=== PATIENT | male | born 1985 | race Caucasian/White ===

== ENCOUNTER 2017-06-05 15:45 | Emergency (ER) | payer SELFPAY ==
[2017-06-05] MEDS ORDERED: ONDANSETRON 4 MG TAB.RAPDIS PO ONE (16:43)
--- NOTE | 2017-06-05 16:45 | ER Document Report ---
ED Medical Screen (RME) - General Chief Complaint: Pain All Over Stated Complaint: HEAT EXAUSTION Time Seen by Provider: 06/05/17 16:43 Mode of Arrival: Medic Information source: Patient Notes: This is a 32-year-old man brought into the emergency room for heat exhaustion. Patient has a history of chronic back pain and is currently treated with Percocet. He stopped having pain medicines 3 times daily. Patient's father also states that the patient drinks a fair amount of beer. Patient's states that he has been working and he oftentimes gets dehydrated. The patient is complaining of nausea, diffuse spasms. TRAVEL OUTSIDE OF THE [place] IN LAST 30 DAYS: No - Related Data Allergies/Adverse Reactions: No Known Allergies Allergy (Unverified 06/05/17 15:54) Past Medical History - Social History Frequency of alcohol use: None Drug Abuse: None Renal/ Medical History: Denies: Hx Peritoneal Dialysis Physical Exam - Vital signs Vitals: Temp Pulse Resp BP Pulse Ox 98.0 F 97 24 H 120/86 H 97 06/05/17 15:53 06/05/17 15:53 06/05/17 15:53 06/05/17 15:53 06/05/17 15:53 Course - Vital Signs Vital signs: Temp Pulse Resp BP Pulse Ox 98.0 F 97 24 H 120/86 H 97 06/05/17 15:53 06/05/17 15:53 06/05/17 15:53 06/05/17 15:53 06/05/17 15:53 - Laboratory Result Diagrams: 06/05/17 16:47 06/05/17 16:47 Laboratory results interpreted by me: 06/05/17 06/05/17 16:47 16:47 WBC 17.8 H Plt Count 466 H Seg Neutrophils % 82.8 H Lymphocytes % 10.0 L Absolute Neutrophils 14.8 H Chloride 95 L Anion Gap 23 H BUN 42 H Creatinine 3.69 H Est GFR ( Amer) 23 L Est GFR (Non-Af Amer) 19 L Glucose 120 H Calcium 11.1 H Total Protein 10.1 H Albumin 5.9 H Doctor's Discharge - Discharge Clinical Impression: Acute renal failure Heat exhaustion Qualifiers: Encounter type: initial encounter Qualified Code(s): T67.5XXA - Heat exhaustion , unspecified, initial encounter Condition: Stable Disposition: ADMITTED INPATIENT
[2017-06-05] MEDS: NORMAL SALINE 1000 ML 1,000 ML IV PRN ×2 (16:55→16:56)
[2017-06-05 17:08] LABS: ABSOLUTE BASOPHILS # (AUTO) 0.1 10^3/uL (0.0-0.2); ABSOLUTE LYMPHOCYTES (AUTO) 1.8 10^3/uL (0.5-4.7); ABSOLUTE MONOCYTES (AUTO) 1.2 10^3/uL (0.1-1.4); ABSOLUTE NEUT (AUTO) 14.8 10^3/uL (1.7-8.2); BASOPHILS % (AUTO) 0.4 % (0-2); EOSINOPHILS % (AUTO) 0.2 % (0-6); HEMATOCRIT 46.4 % (37.9-51.0); HEMOGLOBIN 15.8 g/dL (13.5-17.0); MEAN CORPUSCULAR HEMOGLOBIN 28.6 pg (27.0-33.4); MEAN CORPUSCULAR HGB CONC 34.1 g/dL (32.0-36.0); MEAN CORPUSCULAR VOLUME 84 fl (80-97); MONOCYTES % (AUTO) 6.6 % (3-13); RED BLOOD COUNT 5.52 10^6/uL (4.35-5.55); RED CELL DISTRIBUTION WIDTH 12.8 % (11.5-14.0); SEGMENTED NEUTROPHILS % (AUTO) 82.8 % (42-78); WHITE BLOOD COUNT 17.8 10^3/uL (4.0-10.5)
[2017-06-05] MEDS ORDERED: CLONIDINE HCL 0.1 MG TABLET PO ONE (17:13)
[2017-06-05 17:18] LABS: ALANINE AMINOTRANSFERASE 33 U/L (21-72); ALBUMIN 5.9 g/dL (3.5-5.0); ALKALINE PHOSPHATASE 96 U/L (38-126); ASPARTATE AMINO TRANSFERASE 21 U/L (17-59); BILIRUBIN,DIRECT 0.4 mg/dL (0.0-0.4); BLOOD UREA NITROGEN 42 mg/dL (7-20); CALCIUM 11.1 mg/dL (8.4-10.2); CARBON DIOXIDE 22 mmol/L (22-30); CREATININE RESULT 3.69 mg/dL (0.52-1.25); GLUCOSE 120 mg/dL (75-110); MAGNESIUM 2.1 mg/dL (1.6-2.3); POTASSIUM 4.3 mmol/L (3.6-5.0); SODIUM 140.2 mmol/L (137-145); TOTAL PROTEIN 10.1 g/dL (6.3-8.2)
[2017-06-05 17:30] LABS: CHLORIDE 95 mmol/L (98-107)
[2017-06-05 17:43] LABS: ANION GAP 23 (5-19)
[2017-06-05] MEDS ORDERED: NORMAL SALINE 1000 ML 1,000 ML IV PRN (18:10)
--- NOTE | 2017-06-05 18:10 | ER Document Report ---
ED General - General Chief Complaint: Pain All Over Stated Complaint: HEAT EXAUSTION Time Seen by Provider: 06/05/17 16:43 Mode of Arrival: Medic Information source: Patient Notes: 32-year-old man with a history of chronic back pain presents to the emergency room with diffuse muscle aches, decreased urine output over the last 48 hours. Patient states she has been out exposed to the heat a lot for the past 2 days. TRAVEL OUTSIDE OF THE [place] IN LAST 30 DAYS: No - HPI Onset: Yesterday Onset/Duration: Gradual Quality of pain: Dull Severity: Moderate Pain Level: 2 Associated symptoms: denies: Chills, Fever, Shortness of breath Exacerbated by: Movement Relieved by: Denies Similar symptoms previously: Yes Recently seen / treated by doctor: No - Related Data Allergies/Adverse Reactions: No Known Allergies Allergy (Unverified 06/05/17 15:54) Past Medical History - General Information source: Patient - Social History Smoking Status: Current Every Day Smoker Cigarette use (# per day): Yes - 1/2 Pack per day Chew tobacco use (# tins/day): No Frequency of alcohol use: Heavy Drug Abuse: Prescription drugs Lives with: Family Family History: Reviewed & Not Pertinent Patient has suicidal ideation: No Patient has homicidal ideation: No - Medical History Medical History: Negative Renal/ Medical History: Denies: Hx Peritoneal Dialysis Surgical Hx: Other - NON Contributory Review of Systems - Review of Systems Constitutional: denies: Chills, Fever EENT: No symptoms reported Cardiovascular: No symptoms reported Respiratory: No symptoms reported Gastrointestinal: No symptoms reported Genitourinary: Other - Decreased urine output Male Genitourinary: No symptoms reported Musculoskeletal: See HPI Skin: No symptoms reported Hematologic/Lymphatic: No symptoms reported Neurological/Psychological: Weakness Physical Exam - Vital signs Vitals: Temp Pulse Resp BP Pulse Ox 98.0 F 97 24 H 120/86 H 97 06/05/17 15:53 06/05/17 15:53 06/05/17 15:53 06/05/17 15:53 06/05/17 15:53 Notes: Physical exam: GENERAL: 32-year-old man, alert and oriented 3, appears in distress HEAD: Atraumatic, normocephalic. EYES: Pupils equal round and reactive to light, extraocular movements intact, sclera anicteric, conjunctiva are normal. ENT: TMs normal, nares patent, oropharynx clear without exudates. Moist mucous membranes. NECK: Normal range of motion, supple without lymphadenopathy or JVD. LUNGS: Breath sounds clear to auscultation bilaterally and equal. No wheezes rales or rhonchi. HEART: Regular rate and rhythm without murmurs, rubs or gallops. ABDOMEN: Soft, normoactive bowel sounds. No tenderness to palpation. No guarding, no rebound. No masses appreciated. EXTREMITIES: Normal range of motion, no pitting or edema. No clubbing or cyanosis. NEUROLOGICAL: Cranial nerves II through XII grossly intact. Normal speech, normal gait. PSYCH: Normal mood, normal affect. SKIN: Warm, Dry, normal turgor, no rashes or lesions noted. Course - Re-evaluation Re-evalutation: 06/05/17 18:09 Note: The patient did feel significantly better after IV fluids. The leukocytosis is felt to be from demargination given the stress from heat illness. The patient has not had any cough or abdominal pain or any burning on urination. He has not had any fever or symptoms suggestive of infection. However, his labs are concerning because he has acute renal failure. For this reason, I will continue the IV fluids and admit him to the hospital. 06/05/17 21:03 Patient was accepted by the hospitalist service and I discussed the case with Dr. Mejia who is willing to admit the patient. However, the patient refused admission. I spoke in depth to the patient with his and parents at the bedside. I discussed the importance of having him come into the hospital but he is adamantly against it at this point. He does look significantly better than when he first came in and states he feels great. The plan will be for him to follow-up with a primary care doctor. I have stressed the importance that he follow-up and have repeat kidney function tests in the next week. I have also told him that he should come back here if he is unable to get into the clinic. I [facility] as well as the kidney specialist. - Vital Signs Vital signs: Temp Pulse Resp BP Pulse Ox 97.8 F 81 18 119/73 100 06/05/17 19:22 06/05/17 19:22 07/07/17 19:22 06/05/17 19:22 06/05/17 19:22 - Laboratory Result Diagrams: 06/05/17 16:47 06/05/17 16:47 Laboratory results interpreted by me: 06/05/17 06/05/17 06/05/17 16:47 16:47 18:10 WBC 17.8 H Plt Count 466 H Seg Neutrophils % 82.8 H Lymphocytes % 10.0 L Absolute Neutrophils 14.8 H Chloride 95 L Anion Gap 23 H BUN 42 H Creatinine 3.69 H Est GFR ( Amer) 23 L Est GFR (Non-Af Amer) 19 L Glucose 120 H Calcium 11.1 H Total Protein 10.1 H Albumin 5.9 H Urine Protein 100 H Urine Blood SMALL H - Diagnostic Test Radiology reviewed: Image reviewed, Reports reviewed - CT of the abdomen shows no obstructive uropathy. Chest x-ray was clear Discharge - Discharge Clinical Impression: Acute renal failure Heat exhaustion Qualifiers: Encounter type: initial encounter Qualified Code(s): T67.5XXA - Heat exhaustion , unspecified, initial encounter Condition: Stable Disposition: HOME, SELF-CARE Instructions: Heat Exhaustion ([facility]) Additional Instructions: As we discussed: You have acute kidney injury most likely from heat exhaustion. I would like you to rest over the next few days and drink plenty of fluids. Try to avoid the heat. Take any ibuprofen, Aleve or Motrin Thank you to follow-up with the primary care doctor: I left the number for the [facility]. This is the free clinic. Finally, I left the number for the kidney doctor. Like you to get your kidney function tests repeated in the next week. To the emergency room for any concerns that you are feeling worse Referrals: DAGO SHELL MD [ACTIVE STAFF] - Follow up as needed (The number of the kidney doctor: I would like you to call for an appointment.) [facility] [Provider Group] - Follow up as needed (call for next available appointment)
--- NOTE | 2017-06-05 18:36 | RADIOLOGY REPORT (SQ) ---
EXAM DESCRIPTION: CHEST PA/LAT COMPLETED DATE/TIME: 06/05/2017 6:28 pm REASON FOR STUDY: leukocytosis COMPARISON: None. EXAM PARAMETERS: NUMBER OF VIEWS: two views TECHNIQUE: Digital Frontal and Lateral radiographic views of the chest acquired. RADIATION DOSE: NA LIMITATIONS: none FINDINGS: LUNGS AND PLEURA: No opacities, masses or pneumothorax. No pleural effusion. MEDIASTINUM AND HILAR STRUCTURES: No masses or contour abnormalities. HEART AND VASCULAR STRUCTURES: Heart normal size. No evidence for failure. BONES: No acute findings. HARDWARE: None in the chest. OTHER: No other significant finding. IMPRESSION: NO SIGNIFICANT RADIOGRAPHIC FINDING IN THE CHEST. TECHNICAL DOCUMENTATION: JOB ID: [id number] [employer]- All Rights Reserved
--- NOTE | 2017-06-05 18:36 | RADIOLOGY REPORT (SQ) ---
EXAM DESCRIPTION: CT LTD RENAL STONE PROTOCOL ON COMPLETED DATE/TIME: 06/05/2017 6:25 pm REASON FOR STUDY: right flank pain COMPARISON: None. TECHNIQUE: CT scan of the abdomen and pelvis performed without intravenous or oral contrast. Images reviewed with lung, soft tissue, and bone windows. Reconstructed coronal and sagittal MPR images revi ewed. All images stored on PACS. All CT scanners at this facility use dose modulation, iterative reconstruction, and/or weight based d osing when appropriate to reduce radiation dose to as low as reasonably achievable (ALARA). [facility]: Dose Right [facility]: CareDose [facility]: Dose Right [facility]: Teradose 4D [facility]: Smart [employer] Media RADIATION DOSE: Up-to-date CT equipment and radiation dose reduction techniques were employed. CTDIv ol: 7.0 mGy. DLP: 372 mGy-cm.mGy. LIMITATIONS: None. FINDINGS: LOWER CHEST: No significant findings. No nodules or infiltrates. NON-CONTRASTED LIVER, SPLEEN, ADRENALS: Evaluation limited by lack of IV contrast. No identified sign ificant masses. PANCREAS: No masses. No peripancreatic inflammatory changes. GALLBLADDER: No identified stones by CT criteria. No inflammatory changes to suggest cholecystitis. RIGHT KIDNEY AND URETER: No suspicious masses. Assessment limited by lack of IV contrast. No signif icant calcifications. No hydronephrosis or hydroureter. LEFT KIDNEY AND URETER: No suspicious masses. Assessment limited by lack of IV contrast. Single pun ctate nonobstructing calculus lower pole. No hydronephrosis or hydroureter. AORTA AND RETROPERITONEUM: No aneurysm. No retroperitoneal masses or adenopathy. BOWEL AND PERITONEAL CAVITY: No obvious masses or inflammatory changes. No free fluid. APPENDIX: Normal. PELVIS, BLADDER, AND ABDOMINAL WALL:No abnormal masses. No free fluid. Bladder normal. Tiny fat cont aining periumbilical hernia. BONES: Mild multilevel degenerative disc disease of the visualized spine without fracture or suspicio us osseous lesion. OTHER: No other significant finding. IMPRESSION: PUNCTATE NONOBSTRUCTING LEFT RENAL CALCULUS. NO LOWER URINARY TRACT CALCULI OR HYDRONEPHROSIS. ADDITIONAL CHRONIC CHANGES ABOVE. TECHNICAL DOCUMENTATION: JOB ID: [id number] Quality ID # [id number]: Final reports with documentation of one or more dose reduction techniques (e.g., Au tomated exposure control, adjustment of the mA and/or kV according to patient size, use of iterative reconstruction technique) 2010 [employer]- All Rights Reserved
[2017-06-05 18:41] LABS: APPEARANCE,URINE CLOUDY; BILIRUBIN,URINE NEGATIVE (NEGATIVE); GLUCOSE, URINE NEGATIVE (NEGATIVE); KETONES,URINE NEGATIVE (NEGATIVE); LEUKOCYTE ESTERASE,URINE NEGATIVE (NEGATIVE); NITRITE,URINE NEGATIVE (NEGATIVE); PROTEIN,URINE 100 mg/dL (NEGATIVE); UROBILINOGEN,URINE NEGATIVE mg/dL (<2.0)
[2017-06-05 19:28] VITALS: BP 119/73
== END 2017-06-05 19:23 | disposition home or self-care (01) ==
LOC: ER 15:45
DX: N17.9 Acute kidney failure, unspecified (principal); T67.5XXA Heat exhaustion, unspecified, initial encounter; M79.1 Myalgia; G89.29 Other chronic pain; M54.9 Dorsalgia, unspecified; R53.1 Weakness; F17.210 Nicotine dependence, cigarettes, uncomplicated; X30.XXXA Exposure to excessive natural heat, initial encounter
CPT/HCPCS: 99284; 36415; 82550; 83735; 85025; 80053; 81001; 71020; 76380; S0119; J7030

== ENCOUNTER 2019-10-23 22:11 | Emergency (ER) | payer SELFPAY ==
[2019-10-24] MEDS ORDERED: LIDOCAINE 1%/EPINEPHRINE INJ 20 ML VIAL ONE (00:03)
[2019-10-24] MEDS ORDERED: DIPH/PERTUSS(ACELL)/TETANUS VAC/PF 0.5 ML SYR (>=10YO) IM ONE (00:29)
[2019-10-24] MEDS ORDERED: LIDOCAINE 1%/EPINEPHRINE INJ 20 ML VIAL INJ ONE (00:30)
--- NOTE | 2019-10-24 00:30 | ER Document Report ---
ED Wound - General Chief Complaint: Laceration Stated Complaint: LEFT KNEE INJURY Time Seen by Provider: 10/23/19 23:57 Notes: Patient is a 34-year-old male that comes to the emergency department for chief complaint of laceration to the left leg just below the knee medially. He states that he was cleaning a path with a machete and he accidentally grazed himself with a machete. He states this happened hours ago, he states it finally stopped bleeding and he stayed in the tree stand for a couple of hours before he came in. He does not think he is up-to-date on his tetanus. He denies any other injuries or any other complaints. TRAVEL OUTSIDE OF THE [place] IN LAST 30 DAYS: No - Related Data Allergies/Adverse Reactions: No Known Allergies Allergy (Verified 10/24/19 01:05) Past Medical History - General Information source: Patient - Social History Smoking Status: Current Every Day Smoker Drug Abuse: None Lives with: Spouse/Significant other Family History: Reviewed & Not Pertinent Patient has suicidal ideation: No Patient has homicidal ideation: No Renal/ Medical History: Denies: Hx Peritoneal Dialysis Surgical Hx: Negative - Immunizations Immunizations up to date: Yes Hx Diphtheria, Pertussis, Tetanus Vaccination: Yes Review of Systems - Review of Systems Constitutional: No symptoms reported EENT: No symptoms reported Cardiovascular: No symptoms reported Respiratory: No symptoms reported Gastrointestinal: No symptoms reported Genitourinary: No symptoms reported Male Genitourinary: No symptoms reported Musculoskeletal: See HPI Skin: See HPI Hematologic/Lymphatic: No symptoms reported Neurological/Psychological: No symptoms reported Physical Exam - Vital signs Vitals: Temp Pulse Resp BP Pulse Ox 97.6 F 79 18 125/72 96 10/23/19 22:25 10/23/19 22:25 10/23/19 22:25 10/23/19 22:25 10/23/19 22:25 - Notes Notes: GENERAL: Alert, interacts well. No acute distress. HEAD: Normocephalic, atraumatic. EYES: Pupils equal, round, and reactive to light. Extraocular movements intact. ENT: Oral mucosa moist, tongue midline. Oropharynx unremarkable. LUNGS: Clear to auscultation bilaterally, no wheezes, rales, or rhonchi. No respiratory distress. HEART: Regular rate and rhythm. No murmur ABDOMEN: Soft, non-tender. Non-distended.= EXTREMITIES: There is a 2 cm linear laceration that is partial-thickness with some surrounding soft tissue swelling over the left medial leg below the knee over the medial tibial area. Normal distal neurovascular exam, normal knee exam with normal range of motion, normal coloration on exam otherwise. BACK: no cervical, thoracic, lumbar midline tenderness. No saddle anesthesia, normal distal neurovascular exam. NEUROLOGICAL: Alert and oriented x3. Normal speech. Cranial nerves II through XII grossly intact. PSYCH: Normal affect, normal mood. SKIN: Warm, dry, normal turgor. No rashes or lesions noted. Course - Re-evaluation Re-evalutation: X-ray negative for any acute findings. Areas consistent with soft tissue swelling and a laceration, this was irrigated very thoroughly and repaired with sutures. Discussed care, follow-up, return precautions. Tetanus updated. Patient states understanding and agreement. - Vital Signs Vital signs: Temp Pulse Resp BP Pulse Ox 98.1 F 89 20 150/96 H 95 10/24/19 01:21 10/24/19 01:21 10/24/19 01:21 10/24/19 01:21 10/24/19 01:21 Procedures - Laceration/Wound Repair Left leg Wound length (cm): 2 Wound's Depth, Shape: Linear Laceration pre-procedure: Sterile PPE donned, Sterile drapes applied, Shur-Clens applied Anesthetic type: 1% Lidocaine w/epi Volume Anesthetic (mLs): 5 Wound explored: Clean, No foreign body removed Irrigated w/ Saline (mLs): 80 Wound Repaired With: Sutures Suture Size/Type: 4:0, Nylon Layer Closure?: No Post-procedure wound care: Sterile dressing applied Post-procedure NV exam normal: Yes Complications: No Discharge - Discharge Clinical Impression: Laceration of left leg Qualifiers: Encounter type: initial encounter Qualified Code(s): S81.812A - Laceration without foreign body, left lower leg, initial encounter Condition: Stable Disposition: HOME, SELF-CARE Additional Instructions: The x-ray does not show fracture or concerning finding. Keep the wound clean, clean with soap and water, keep topical antibiotic dressing over the area. Avoid soaking or scrubbing the area. Sutures need to be removed in 7 days. Return for any signs of infection including developing pain, redness, swelling, discolored drainage, fever, or any other concerning symptoms. Forms: Return to Work
--- NOTE | 2019-10-24 00:38 | RADIOLOGY REPORT (SQ) ---
EXAM DESCRIPTION: XR TIBIA FIBULA 2 VIEWS COMPLETED DATE/TME: 10/23/2019 00:00 CLINICAL HISTORY: 34 years, Male, swelling, laceration COMPARISON: None. NUMBER OF VIEWS: TECHNIQUE: LIMITATIONS: None. FINDINGS: 2 views of the left leg were obtained. No fracture or dislocation. No evidence of radiopaque foreign body within the soft tissues. Mineralization of bone appears normal. IMPRESSION: No fracture or radiopaque foreign body. copyright 2010 [employer]- All Rights Reserved
[2019-10-24 01:22] VITALS: BP 150/96
== END 2019-10-24 01:27 | disposition home or self-care (01) ==
LOC: ER 22:11
DX: S81.812A Laceration without foreign body, left lower leg, initial encounter (principal); F17.200 Nicotine dependence, unspecified, uncomplicated; W26.0XXA Contact with knife, initial encounter; Y93.H2 Activity, gardening and landscaping; Z23 Encounter for immunization
CPT/HCPCS: 73590; 12001; J3490; 99283

== ENCOUNTER 2020-06-27 00:14 | Emergency (ER) | payer SELFPAY ==
[2020-06-27 00:38] VITALS: BP 142/88
[2020-06-27] MEDS ORDERED: NORMAL SALINE 1000 ML 1,000 ML IV ONE (00:47)
[2020-06-27] MEDS ORDERED: ONDANSETRON HCL INJ/PF 4 MG/2 ML SDV IV ONE (00:47)
--- NOTE | 2020-06-27 01:24 | RADIOLOGY REPORT (SQ) ---
EXAM DESCRIPTION: CT abdomen and pelvis without contrast CLINICAL HISTORY: 35 years Male, LEFT ABD PAIN SUDDEN ONSET COMPARISON: None. TECHNIQUE: Axial images of the abdomen and pelvis were performed without the use of intravenous contrast, with sagittal and coronal reformatted images. This exam was performed according to our departmental dose-optimization program which includes use of Automated Exposure Control, adjustment of the mA and/or kV according to patient size and/or use of iterative reconstruction technique. FINDINGS: There is a 4.4 x 3.6 x 3.2 mm stone, in the proximal left ureter, with mild hydronephrosis. There are small stones in the right kidney, but there is no hydronephrosis on the right side. The appendix appears normal. No evidence of bowel obstruction. There is no significant radiographic abnormality of the liver, spleen, pancreas or adrenal glands. No mass or adenopathy. No free air or free fluid. IMPRESSION: Proximal left ureteral stone.
[2020-06-27 01:46] LABS: ABSOLUTE BASOPHILS # (AUTO) 0.1 10^3/uL (0.0-0.2); ABSOLUTE LYMPHOCYTES (AUTO) 0.7 10^3/uL (0.5-4.7); ABSOLUTE MONOCYTES (AUTO) 0.4 10^3/uL (0.1-1.4); ABSOLUTE NEUT (AUTO) 10.5 10^3/uL (1.7-8.2); BASOPHILS % (AUTO) 0.5 % (0-2); HEMATOCRIT 39.8 % (37.9-51.0); HEMOGLOBIN 13.9 g/dL (13.5-17.0); LYMPHOCYTES % (AUTO) 6.3 % (13-45); MEAN CORPUSCULAR HEMOGLOBIN 29.2 pg (27.0-33.4); MEAN CORPUSCULAR HGB CONC 34.8 g/dL (32.0-36.0); MEAN CORPUSCULAR VOLUME 84 fl (80-97); MONOCYTES % (AUTO) 3.1 % (3-13); PLATELET COUNT 310 10^3/uL (150-450); RED BLOOD COUNT 4.74 10^6/uL (4.35-5.55); RED CELL DISTRIBUTION WIDTH 12.4 % (11.5-14.0); SEGMENTED NEUTROPHILS % (AUTO) 90.1 % (42-78); TOTAL CELLS COUNTED % (AUTO) 100 %; WHITE BLOOD COUNT 11.6 10^3/uL (4.0-10.5)
[2020-06-27 02:31] LABS: ALBUMIN 4.6 g/dL (3.5-5.0); ALKALINE PHOSPHATASE 62 U/L (38-126); ANION GAP 9 (5-19); ASPARTATE AMINO TRANSFERASE 20 U/L (17-59); BILIRUBIN,TOTAL 0.4 mg/dL (0.2-1.3); BLOOD UREA NITROGEN 18 mg/dL (7-20); CALCIUM 9.4 mg/dL (8.4-10.2); CARBON DIOXIDE 24 mmol/L (22-30); CHLORIDE 102 mmol/L (98-107); GLUCOSE 154 mg/dL (75-110); POTASSIUM 3.8 mmol/L (3.6-5.0); TOTAL PROTEIN 7.1 g/dL (6.3-8.2)
[2020-06-27] MEDS ORDERED: KETOROLAC TROMETHAMINE INJ/PF 30 MG/1 ML SDV IV ONE (02:34)
[2020-06-27] MEDS ORDERED: TAMSULOSIN HCL 0.4 MG CAP.SR.24H PO ONE (02:35)
[2020-06-27] MEDS ORDERED: HYDROCODONE/ACETAMINOPHEN 5-325 MG (6 TAB/ER DISP) PO PRN (02:35)
[2020-06-27] MEDS ORDERED: ONDANSETRON ODT 4 MG TAB (6 TAB/ER DISP) PO PRN (02:35)
--- NOTE | 2020-06-27 02:40 | ER Document Report ---
ED GI/ - General Chief Complaint: Abdominal Pain Stated Complaint: ABDOMIANL PAIN Time Seen by Provider: 06/27/20 00:47 Primary Care Provider: SULEMAN QUAN MD [NO LOCAL MD] - Follow up as needed Mode of Arrival: Ambulatory Information source: Patient Notes: 35-year-old male patient presented to the emergency department with sudden onset left flank pain with nausea and vomiting. Patient denies any fever, chills, states that the pain came on abruptly. He appears to be in moderate distress in the triage area. He denies any recent illness prior to the onset of this pain. TRAVEL OUTSIDE OF THE [place] IN LAST 30 DAYS: No - Related Data Allergies/Adverse Reactions: No Known Allergies Allergy (Verified 10/24/19 01:05) Past Medical History - General Information source: Patient - Social History Smoking Status: Never Smoker Frequency of alcohol use: None Family History: Reviewed & Not Pertinent Patient has homicidal ideation: No - Medical History Medical History: Negative Renal/ Medical History: Denies: Hx Peritoneal Dialysis Surgical Hx: Negative - Immunizations Immunizations up to date: Yes Hx Diphtheria, Pertussis, Tetanus Vaccination: Yes Review of Systems - Review of Systems Constitutional: denies: Chills, Fever Gastrointestinal: Abdominal pain, Nausea, Vomiting Genitourinary: Flank pain -: Yes All other systems reviewed and negative Physical Exam - Vital signs Vitals: Temp Pulse Resp BP Pulse Ox 98.1 F 72 20 142/88 H 100 06/27/20 00:30 06/27/20 00:30 06/27/20 00:30 06/27/20 00:30 06/27/20 00:30 - Notes Notes: PHYSICAL EXAMINATION: GENERAL: Well-nourished, actively vomiting in triage. HEAD: Atraumatic, normocephalic. EYES: Pupils equal round and reactive to light, extraocular movements intact, sclera anicteric, conjunctiva are normal. ENT: Nares patent, oropharynx clear without exudates. Moist mucous membranes. NECK: Normal range of motion, supple without lymphadenopathy LUNGS: Breath sounds clear to auscultation bilaterally and equal. No wheezes rales or rhonchi. HEART: Regular rate and rhythm without murmurs ABDOMEN: Soft, nontender, nondistended abdomen. No guarding, no rebound. No masses appreciated. Genitourinary: Left CVA tenderness. Musculoskeletal: Normal range of motion, no pitting or edema. No cyanosis. NEUROLOGICAL: Cranial nerves grossly intact. Normal speech, normal gait. Normal sensory, motor exams PSYCH: Normal mood, normal affect. SKIN: Warm, Dry, normal turgor, no rashes or lesions noted. Course - Re-evaluation Re-evalutation: Laboratory 06/27/20 06/27/20 01:25 01:25 WBC 11.6 H RBC 4.74 Hgb 13.9 Hct 39.8 MCV 84 MCH 29.2 MCHC 34.8 RDW 12.4 Plt Count 310 Lymph % (Auto) 6.3 L [place] % (Auto) 3.1 Eos % (Auto) 0.0 Baso % (Auto) 0.5 Absolute Neuts (auto) 10.5 H Absolute Lymphs (auto) 0.7 Absolute Monos (auto) 0.4 Absolute Eos (auto) 0.0 Absolute Basos (auto) 0.1 Seg Neutrophils % 90.1 H Sodium 134.9 L Potassium 3.8 Chloride 102 Carbon Dioxide 24 Anion Gap 9 BUN 18 Creatinine 0.92 Est GFR ( Amer) > 60 Est GFR (MDRD) Non-Af > 60 Glucose 154 H Calcium 9.4 Total Bilirubin 0.4 Direct Bilirubin 0.0 Neonat Total Bilirubin Not Reportable Neonat Direct Bilirubin Not Reportable Neonat Indirect Bili Not Reportable AST 20 ALT 17 Alkaline Phosphatase 62 Total Protein 7.1 Albumin 4.6 Lipase 82.9 Abdomen/Pelvis CT 06/27/20 00:48 IMPRESSION: Proximal left ureteral stone. Patient appears well, nontoxic, his work-up today shows that he has a proximal left ureteral stone. It is a nonobstructing stone. There is no perinephric stranding. Unfortunately he has been unable to give us a urine sample here in the emergency department, he urinated just prior to arrival. After several hours of waiting, patient reports he is ready to go, his pain has improved after medications given here in the emergency department. He will be treated for his kidney stone. ED return precautions discussed to include development of fever, worsening pain, inability to urinate or dysuria. Patient verbalized understan ding and agreement this plan. - Vital Signs Vital signs: Temp Pulse Resp BP Pulse Ox 98.1 F 72 20 142/88 H 100 06/27/20 00:30 06/27/20 00:30 06/27/20 00:30 06/27/20 00:30 06/27/20 00:30 - Laboratory Result Diagrams: 06/27/20 01:25 06/27/20 01:25 Laboratory results interpreted by me: 06/27/20 06/27/20 01:25 01:25 WBC 11.6 H Lymph % (Auto) 6.3 L Absolute Neuts (auto) 10.5 H Seg Neutrophils % 90.1 H Sodium 134.9 L Glucose 154 H Discharge - Discharge Clinical Impression: Kidney stone Condition: Stable Disposition: HOME, SELF-CARE Additional Instructions: Your symptoms should improve over the course of the next one week. If you continue to have pain for greater than one week or your pain is not controlled with the pain medications that you have been sent home with you need to return to the emergency department. Please also return if you develop fever, persistent vomiting, or any other symptoms that are concerning to you. You should take ibuprofen 600 mg every 6 hours and use the pain medication as prescribed only for pain not controlled by ibuprofen. You are also been sent home with a medication called Flomax to help pass the stone. You've been given Zofran to assist with nausea. Please follow-up with urology in the next 2-3 days. Prescriptions: Tamsulosin HCl [Flomax] 0.4 mg PO DAILY #7 cap.er.24h Hydrocodone/Acetaminophen [[place] 5-325 mg Tablet] 1 tab PO Q6H #10 tablet Ondansetron [Zofran Odt 4 mg Tablet] 1 - 2 tab PO Q4H PRN #15 tab.rapdis PRN Reason: For Nausea/Vomiting Forms: Return to Work Referrals: SULEMAN QUAN MD [NO LOCAL MD] - Follow up as needed
== END 2020-06-27 02:55 | disposition home or self-care (01) ==
LOC: ER 00:14
DX: N20.1 Calculus of ureter (principal); R10.9 Unspecified abdominal pain; R11.2 Nausea with vomiting, unspecified
CPT/HCPCS: 99284; 96374; 96375; 36415; 83690; 85025; 80053; 74176; J1885; J2405